=== PATIENT | male | born 1975 | race Caucasian/White ===

== ENCOUNTER 2022-05-18 11:44 | Emergency (ER) | payer BC ==
[2022-05-18] MEDS ORDERED: Ondansetron 4 MG Tab.DIS PO ONE (12:28)
[2022-05-18] MEDS ORDERED: Acetaminophen/HYDROcodone 325-10 MG Tab PO ONE (12:28)
[2022-05-18] MEDS ORDERED: Acetaminophen/HYDROcodone 325-10 MG Tab ONE (12:47)
== END 2022-05-18 13:12 | disposition home or self-care (01) ==
LOC: DL.ED 11:44
DX: S52.572A Other intraarticular fracture of lower end of left radius, initial encounter for closed fracture (principal); S52.612A Displaced fracture of left ulna styloid process, initial encounter for closed fracture; E78.00 Pure hypercholesterolemia, unspecified; E11.9 Type 2 diabetes mellitus without complications; Z79.84 Long term (current) use of oral hypoglycemic drugs; Z79.899 Other long term (current) drug therapy; W18.30XA Fall on same level, unspecified, initial encounter
CPT/HCPCS: 29125; 73110; 99283; A9270